=== PATIENT | male | born 1950 | race Caucasian/White ===

== ENCOUNTER → 2018-07-14 14:52 | Outpatient (CLI) | payer MEDICARE, OTHER, SELFPAY ==
--- NOTE | 2018-07-14 | DI.MRI.S_ITS ---
PROCEDURE: MR KNEE RT WO CON INDICATIONS: Medial and lateral right knee pain TECHNIQUE: Noncontrast sagittal PD fast spin echo and T2 fast spin echo with fat saturation, sagittal 3-D FLASH with fat saturation; coronal T1 spin echo and PD fast spin echo with fat saturation, and axial PD fast spin echo with fat saturation through the knee. COMPARISON: [facility] [place], CR, XR KNEE ARTHRITIC SERIES RT, 07/13/2018, 9:38. FINDINGS: Image quality: Mild motion artifacts. Unable to use knee coil. Menisci: There is large horizontal tear involving the posterior horn and body of the medial meniscus. There is ill-defined tear involving the medial aspect of the anterior horn of the lateral meniscus as well as the anterior retreatment. Cruciate ligaments: The anterior and posterior cruciate ligaments appear intact. Medial structures: The medial collateral ligament appears intact. The posterior oblique ligament, semimembranosus tendon insertions, oblique popliteal ligament, and meniscocapsular junction appear intact. Visualized portions of the pes anserinus tendons appear normal. No abnormal bursal fluid. Lateral structures: The lateral collateral ligament, long and short heads of the biceps femoris tendon appear intact. The popliteus tendon appears normal; the popliteofibular ligament appears intact. The posterosuperior and anteroinferior popliteomeniscal fascicles appear intact. The arcuate and fabellofibular ligaments appear intact, on either side of the lateral inferior geniculate artery. Iliotibial band appears normal. Anterior structures: The quadriceps and patellar tendons appear intact. Patellar alignment is normal. No femoral trochlear dysplasia or ventral trochlear prominence. No edema in the infrapatellar fat pad. Bones and cartilage: No bone marrow contusions or fractures. 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 Joint space: There is large knee joint effusion. There is a tiny Rubi's cyst. Normal appearing synovial plicae are incidentally noted. IMPRESSION: 1. Large horizontal tear of the medial meniscus. 2. Ill-defined tear of the medial aspect of the anterior horn and root ligament of the lateral meniscus. 3. Large knee joint effusion. 4. 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 Dictated by: Rosibel Sheffield M.D. on 07/14/2018 at 16:00 Approved by: Rosibel Sheffield M.D. on 07/14/2018 at 16:20
== END ==
PROVIDERS: PCP Family Medicine; Visit Provider Orthopaedic Surgery
DX: M25.561 Pain in right knee (principal); S83.241A Other tear of medial meniscus, current injury, right knee, initial encounter; S83.281A Other tear of lateral meniscus, current injury, right knee, initial encounter; M25.461 Effusion, right knee
CPT/HCPCS: 73721

== ENCOUNTER → 2019-12-25 07:41 | Outpatient (CLI) | payer MEDICARE, OTHER, SELFPAY ==
--- NOTE | 2019-12-25 | DI.US.S_ITS ---
PROCEDURE: US ABD AORTA ANEURYSM SCREEN INDICATIONS: AAA TECHNIQUE: Real time scanning was performed of the aorta and iliac arteries, with image documentation. COMPARISON: None. FINDINGS: Aorta: Proximal aortic is not visualized. Mid-aorta measures 2.4 x 2.4 cm. Distal aortic diameter is 1.7 x 1.6 cm. Iliac arteries: Right common iliac artery measures 1.2 x 1.1 cm. Left common iliac artery measures 1.3 x 1 cm. Mild atherosclerotic plaque is visualized. IMPRESSION: No abdominal aortic aneurysm demonstrated. Proximal aorta not visualized due to bowel gas. Dictated by: Rocco Villanueva M.D. on 12/25/2019 at 8:22 Approved by: Rocco Villanueva M.D. on 12/25/2019 at 8:24
== END ==
PROVIDERS: PCP Family Medicine; Referring Provider Family Medicine; Visit Provider Family Medicine
DX: Z13.6 Encounter for screening for cardiovascular disorders (principal)
CPT/HCPCS: 76706